=== PATIENT | female | born 1990 | race Caucasian/White ===

== ENCOUNTER 2018-01-09 00:10 | Inpatient (IN) | payer OTHER ==
[~2018-01-09] VITALS: Ht 165.1 cm; Wt 68.0 kg
[2018-01-09] MEDS ORDERED: OXYTOCIN/NORMAL SALINE 1,000 ML IV SCH ×2 (01:11→18:15)
[2018-01-09] MEDS ORDERED: TERBUTALINE SULFATE 1 MG/ML VIAL SUBCUT ONE (01:15)
[2018-01-09] MEDS ORDERED: MISOPROSTOL 100 MCG TABLET (CYTOTEC) PO PRN (01:15)
[2018-01-09] MEDS ORDERED: NALBUPHINE HCL 10 MG/ML AMP IVP PRN (01:15)
[2018-01-09] MEDS: LR 1,000 ML IV SCH ×2 (01:30→10:00)
[2018-01-09 01:57] LABS: MEAN CORPUSCULAR HEMOGLOBIN 26 pg (27-31); MEAN CORPUSCULAR VOLUME 78 fL (79.0-98.0)
[2018-01-09 02:01] LABS: HEMATOCRIT 34.3 % (36-48); HEMOGLOBIN 11.5 g/dL (12.0-16.0); MEAN CORPUSCULAR HGB CONC 34 % (32-36); RED BLOOD CELL COUNT(AUTO) 4.38 MIL/uL (4.2-6.2); RED CELL DISTRIBUTION WIDTH 15.1 % (9.0-15.0)
[2018-01-09 02:19] LABS: ATYPICAL LYMPHOCYTES % 0 % (0-0); BAND % (MANUAL) 2 % (0-6); BASOPHILS % (MANUAL) 0 % (0-2); EOSINOPHILS % (MANUAL) 4 % (0-7); LYMPHOCYTES % (MANUAL) 19 % (20-46); MONOCYTES % (MANUAL) 1 % (0-11)
[2018-01-09 02:20] LABS: PLATELET COUNT (AUTO) 208 K/uL (130-430)
[2018-01-09 03:32] VITALS: BP_SYST 117
[2018-01-09] MEDS ORDERED: fentaNYL CITRATE/PF 100 MCG/2 ML AMP ONE (09:20)
[2018-01-09] MEDS ORDERED: FENT2mCg/mL-ROPIVA0.2%/NS EPID 150 ML EP SCH (12:20)
[2018-01-09] MEDS ORDERED: OXYCODONE/ACETAMINOPHEN 5-325 TABLET PO PRN (18:15)
[2018-01-09] MEDS ORDERED: DERMOPLAST SPRAY TP PRN (18:15)
[2018-01-09] MEDS ORDERED: RHO(D) IMMUNE GLOBULIN/MALTOSE 1500 UNITS/1.3 ML (WINHRO) IM PRN (18:15)
[2018-01-09] MEDS ORDERED: METHYLERGONOVINE MALEATE 0.2 MG TABLET PO PRN (18:15)
[2018-01-09] MEDS ORDERED: HYDROCORTISONE 0.5%, 28.35 GM TOPICAL CREAM TP PRN (18:15)
[2018-01-09] MEDS ORDERED: GLYCERIN/WITCH HAZEL (TUCKS PADS) TP PRN (18:15)
[2018-01-09] MEDS ORDERED: OXYTOCIN/NORMAL SALINE 1,000 ML IV ONE (18:15)
[2018-01-09] MEDS ORDERED: DIPH-TET-PERTUS Vaccine 0.5 ML VIAL (ADACEL) I.M. PRN (18:15)
[2018-01-09] MEDS ORDERED: LANOLIN 7 GM OINT. TP PRN (18:15)
[2018-01-09] MEDS ORDERED: ACETAMINOPHEN 325 MG TABLET PO PRN (18:15)
[2018-01-09] MEDS ORDERED: SENNOSIDES/DOCUSATE SODIUM 1 TAB TABLET(SENOKOT-S) PO PRN (18:15)
[2018-01-09] MEDS ORDERED: MEASLES,MUMPS&RUBELLA VACC/PF 12500 UNIT/0.5 ML VIAL SUBQ PRN (18:15)
[2018-01-09] MEDS ORDERED: ANUSOL 1 EA SUPP.RECT (PREPARATION H) RC PRN (18:15)
[2018-01-09] MEDS ORDERED: guaiFENesin 200 MG/10 ML UDC PO PRN (18:45)
[2018-01-09] MEDS: IBUPROFEN 600 MG TABLET PO SCH (18:47)
[2018-01-09] MEDS: OXYCODONE/ACETAMINOPHEN 5-325 TABLET PO PRN (20:35)
[2018-01-09] MEDS: DOCUSATE SODIUM 100 MG CAPSULE PO PRN (20:35)
[2018-01-09] MEDS ORDERED: TEMAZEPAM 15 MG CAPSULE PO PRN (21:00)
[2018-01-10 07:18] LABS: HEMATOCRIT 27.9 % (36-48); HEMOGLOBIN 9.2 g/dL (12.0-16.0)
[2018-01-10] MEDS: IBUPROFEN 600 MG TABLET PO SCH ×3 (12:25→18:08)
[2018-01-10] MEDS: OXYCODONE/ACETAMINOPHEN 5-325 TABLET PO PRN (16:49)
[2018-01-10] MEDS: DOCUSATE SODIUM 100 MG CAPSULE PO PRN (16:49)
[2018-01-11] MEDS: IBUPROFEN 600 MG TABLET PO SCH ×3 (00:20→12:28)
[2018-01-11] MEDS: DOCUSATE SODIUM 100 MG CAPSULE PO PRN (00:21)
== END 2018-01-11 14:25 | disposition home or self-care (01) | DRG 775 ==
LOC: SPU 00:10
PROVIDERS: ADMIT Obstetrics & Gynecology; ATTEND Obstetrics & Gynecology
PROC: 10D07Z6 Extraction of Products of Conception, Vacuum, Via Natural or Artificial Opening (ICD-10-PCS; principal; 2018-01-09)
PROC: 0KQM0ZZ Repair Perineum Muscle, Open Approach (ICD-10-PCS; 2018-01-09)
PROC: 3E0R3BZ Introduction of Anesthetic Agent into Spinal Canal, Percutaneous Approach (ICD-10-PCS; 2018-01-09)
PROC: 00HU33Z Insertion of Infusion Device into Spinal Canal, Percutaneous Approach (ICD-10-PCS; 2018-01-09)
PROC: 3E0P7VZ Introduction of Hormone into Female Reproductive, Via Natural or Artificial Opening (ICD-10-PCS; 2018-01-09)
PROC: 3E0134Z Introduction of Serum, Toxoid and Vaccine into Subcutaneous Tissue, Percutaneous Approach (ICD-10-PCS; 2018-01-09)
DX: O75.81 Maternal exhaustion complicating labor and delivery (principal); O48.0 Post-term pregnancy; O70.1 Second degree perineal laceration during delivery; O76 Abnormality in fetal heart rate and rhythm complicating labor and delivery; Z3A.40 40 weeks gestation of pregnancy; Z37.0 Single live birth; Z23 Encounter for immunization
CPT/HCPCS: 36415; 81002-TC; 85007; 85018-TC; 85027; 86592; 86886; 86900; 86901; J2590; J3010; J3105; J7120